=== PATIENT | female | born 1970 | race African-American/Black ===

== ENCOUNTER → 2020-06-26 | Outpatient (CLI) | payer BC, OTHER ==
[~2020-06-26] MED LIST: ACETAMINOPHEN-1 EAC1 OR; ACETAMINOPHEN-1 EAC1 PO; AMOXICILLIN 50500 MG PO; AUGMENTIN 875875 MG PO; BACTRIM DS TAB1 EACH PO; BIAXIN500 MG PO; FIORICET 50-321 EACH PO; HYDROCHLOROTHIA25 M1 PO; LISINOPRIL-HCT1 EAC2 PO; LISINOPRIL5 MG; LISINOPRIL5 MG PO; LOESTRIN1 EAC1 PO; NORCO 5-325 TA1 EACH PO; OXYCODONE HCL5 MG PO; PHENASEPTIC1 BOT MUCOUS MEM; PRILOSEC 20 MG20 MG PO; PROBIOTIC1 EAC1 PO; PROTONIX40 M1 PO; SPRINTEC1 EACH OR; TINIDAZOLE500 MG; TINIDAZOLE500 MG PO; TRIPLE ANTIBIOT28 G1 TP; ULTRAM 50MG TAB50 MG PO
== END ==
LOC: LAB 07:52
PROVIDERS: ATTEND Anesthesiology
DX: Z01.818 Encounter for other preprocedural examination (principal); Z20.822 Contact with and (suspected) exposure to COVID-19